=== PATIENT | female | born 1995 | race Caucasian/White ===

== ENCOUNTER 2020-06-28 10:32 | Emergency (ER) | payer OTHER ==
[~2020-06-28] VITALS: Ht 170.2 cm; Wt 58.5 kg
[2020-06-28 11:02] LABS: ABSOLUTE NEUTROPHILS 6.6 thou/uL (1.4-8.2); BASOPHILS 0.7 % (0.0-2.0); EOSINOPHILS 0.8 % (0.0-3.0); HEMATOCRIT 29.9 % (37.0-47.0); HEMOGLOBIN 9.2 gm/dL (12.0-15.0); LYMPHOCYTES 12.2 % (24.0-44.0); MCH 24.8 pg (26.0-34.0); MCHC 30.7 g/dL (28.0-37.0); MCV 80.8 fL (80.0-100.0); MONOCYTES 6.6 % (1.0-8.0); PLATELET COUNT 283 thou/uL (150-400); POLYS 79.7 % (36.0-66.0); RDW 18.4 % (10.5-14.5); WBC 8.3 thou/uL (4.0-11.0)
[2020-06-28 11:18] LABS: ANION GAP 16 mmol/L (7-16); BUN 11 mg/dL (7-18); CALCIUM 9.4 mg/dL (8.5-10.1); CHLORIDE 105 mmol/L (98-107); CO2 17 mmol/L (21-32); CREATININE 0.8 mg/dL (0.6-1.0); GLUCOSE 106 mg/dL (74-106); SODIUM 138 mmol/L (136-145)
[2020-06-28 11:19] LABS: POTASSIUM 2.9 mmol/L (3.5-5.1)
[2020-06-28 11:29] LABS: ALBUMIN 4.2 g/dL (3.4-5.0); SGOT 15 U/L (15-37); SGPT 13 U/L (14-59); TOTAL BILIRUBIN 1.2 mg/dL (0.2-1.0); TROPONIN-I <0.06 ng/mL (<0.06)
[2020-06-28] MEDS ORDERED: PREDNISONE 20 M20 MG PO (12:43)
[2020-06-28] MEDS ORDERED: POTASSIUM20 PO (12:43)
[2020-06-28] MEDS ORDERED: PROAIR HFA8.5 GM INH (12:43)
[2020-06-28 13:10] VITALS: BP 119/72
[2020-06-28 13:57] LABS: ANISOCYTOSIS 1+; PLATELET ESTIMATE NORMAL
--- NOTE | 2020-06-28 14:22 | EKG ---
[place] [address] [facility] [place] [address] ELECTROCARDIOGRAM REPORT Name: ELEANOR MIGUEL Room #: DEP CATE Simmons#: [id number] Admission: 06/28/20 Attend Phys: Discharge: 06/28/20 Date of : [birth year] Report #: [id number] [facility] ED Test Date: 2020-06-28 Test Time: 11:46:03 Pat Name: ELEANOR MIGUEL Department: Room: Gender: F Showroom Sales Assistant: : 1995 Requested By: Rex Mae Order Number: [id number] MD: Brian Moeller Measurements Intervals [place] Rate: 114 P: 63 NM: 140 QRS: 61 QRSD: 77 T: 35 QT: 317 QTc: 437 Interpretive Statements Sinus tachycardia Baseline wander in lead(s) II No previous ECG available for comparison Electronically Signed On 06-28-2020 14:22:39 TREATMENT TECHNICIAN by Brian Moeller [email or web address] <ELECTRONICALLY SIGNED> By: Brian Moeller MD, [facility] 06/28/20 1422 1146 1146 Brian Moeller MD, FACC /EPI
== END 2020-06-28 13:10 | disposition home or self-care (01) ==
LOC: ER 10:32
PROVIDERS: Emergency Medicine
DX: J45.909 Unspecified asthma, uncomplicated (principal); E87.6 Hypokalemia; R53.83 Other fatigue; Z20.828 Contact with and (suspected) exposure to other viral communicable diseases

== ENCOUNTER 2020-07-03 11:02 | Emergency (ER) | payer OTHER ==
[~2020-07-03 11:02] MED LIST: POTASSIUM20 PO; PREDNISONE 20 M20 MG PO; PROAIR HFA8.5 GM INH
== END 2020-07-03 11:11 | disposition left against medical advice (07) ==
LOC: ER 11:02
DX: J02.9 Acute pharyngitis, unspecified (principal); Z53.21 Procedure and treatment not carried out due to patient leaving prior to being seen by health care provider

== ENCOUNTER 2020-07-25 14:28 | Emergency (ER) | payer OTHER ==
[~2020-07-25] VITALS: Ht 170.2 cm; Wt 57.1 kg
[2020-07-25] MEDS ORDERED: AMOXICILLIN500 M1 PO (15:39)
[2020-07-25 16:15] VITALS: BP 132/74
== END 2020-07-25 17:44 | disposition home or self-care (01) ==
LOC: ER 14:28
DX: K08.89 Other specified disorders of teeth and supporting structures (principal); R22.0 Localized swelling, mass and lump, head; Z91.040 Latex allergy status; Z79.899 Other long term (current) drug therapy

== ENCOUNTER 2021-04-24 13:07 | Emergency (ER) | payer OTHER ==
[~2021-04-24 13:07] MED LIST changes: +AMOXICILLIN500 M1 PO
[2021-04-24 13:11] VITALS: BP 107/76
== END 2021-04-24 13:57 | disposition home or self-care (01) ==
LOC: ER 13:07
PROVIDERS: Nurse Practitioner
DX: J02.9 Acute pharyngitis, unspecified (principal); Z20.822 Contact with and (suspected) exposure to COVID-19; J45.909 Unspecified asthma, uncomplicated; Z79.51 Long term (current) use of inhaled steroids; Z79.899 Other long term (current) drug therapy; Z91.040 Latex allergy status

== ENCOUNTER 2021-04-25 15:21 | Emergency (ER) | payer OTHER ==
[~2021-04-25] VITALS: Ht 170.2 cm; Wt 56.2 kg
[2021-04-25 16:12] LABS: HEMOGLOBIN 9.5 gm/dL (12.0-15.0); MCH 25.7 pg (26.0-34.0); MCHC 30.6 g/dL (28.0-37.0); MCV 83.8 fL (80.0-100.0); PLATELET COUNT 343 thou/uL (150-400); RBC 3.69 mil/uL (4.20-5.00); RDW 17.4 % (10.5-14.5); WBC 2.8 thou/uL (4.0-11.0)
[2021-04-25 16:28] LABS: ANION GAP 10 mmol/L (7-16); BUN 15 mg/dL (7-18); CALCIUM 8.6 mg/dL (8.5-10.1); CHLORIDE 105 mmol/L (98-107); CO2 25 mmol/L (21-32); CREATININE 0.5 mg/dL (0.6-1.0); GLUCOSE 82 mg/dL (74-106); POTASSIUM 3.5 mmol/L (3.5-5.1); SODIUM 140 mmol/L (136-145)
[2021-04-25 16:33] LABS: ALBUMIN 4.1 g/dL (3.4-5.0); SGOT 17 U/L (15-37); SGPT 11 U/L (14-59); TOTAL BILIRUBIN 1.2 mg/dL (0.2-1.0)
[2021-04-25 16:38] LABS: ABSOLUTE NEUTROPHILS 0.7 thou/uL (1.4-8.2); ATYPICAL LYMPHS 5 %
[2021-04-25 18:47] VITALS: BP 122/80
--- NOTE | 2021-04-26 08:29 | EKG ---
[place] [address] [address] [place] [address] ELECTROCARDIOGRAM REPORT Name: ELEANOR MIGUEL Room #: [facility] CATE Simmons#: [id number] Admission: 04/25/21 Attend Phys: Discharge: 04/25/21 Date of : [birth year] Report #: [id number] [facility] ED Test Date: 2021-04-25 Test Time: 15:31:55 Pat Name: ELEANOR MIGUEL Department: Room: Gender: F Workers Compensation Legal Secretary: JAMMIE : 1995 Requested By: Moody Curran Order Number: [id number] MD: Ankush Lopez Measurements Intervals [place] Rate: 62 P: 60 OK: 153 QRS: 48 QRSD: 78 T: 45 QT: 408 QTc: 415 Interpretive Statements Sinus rhythm no significant abnormality Compared to ECG 06/28/2020 11:46:03 Sinus tachycardia no longer present Electronically Signed On 04-26-2021 8:29:44 CDT by Ankush Lopez [email or web address] <ELECTRONICALLY SIGNED> By: Ankush Lopez MD, [facility] 04/26/21 0829 153 1531 Ankush Lopez MD, FACC /EPI
== END 2021-04-25 18:47 | disposition home or self-care (01) ==
LOC: ER 15:21
PROVIDERS: Physician Assistant
DX: D72.819 Decreased white blood cell count, unspecified (principal); R07.89 Other chest pain; J45.909 Unspecified asthma, uncomplicated; Z79.51 Long term (current) use of inhaled steroids; Z91.040 Latex allergy status

== ENCOUNTER 2021-06-08 18:19 | Emergency (ER) | payer OTHER ==
[~2021-06-08] VITALS: Ht 172.7 cm; Wt 55.3 kg
[2021-06-08 18:24] VITALS: BP 126/83
[2021-06-08 18:54] LABS: URINE BILIRUBIN NEGATIVE (Negative); URINE BLOOD TRACE (Negative); URINE CLARITY CLEAR; URINE COLOR YELLOW; URINE GLUCOSE-RANDOM* NEGATIVE (Negative); URINE KETONES NEGATIVE (Negative); URINE LEUKOCYTES-REFLEX NEGATIVE (Negative); URINE NITRITE-REFLEX NEGATIVE (Negative); URINE PROTEIN (DIPSTICK) NEGATIVE (Negative); URINE SPECIFIC GRAVITY <= 1.005 (1.005-1.035)
== END 2021-06-08 19:50 | disposition home or self-care (01) ==
LOC: ER 18:19
PROVIDERS: Physician Assistant
DX: U07.1 COVID-19 (principal); Z91.040 Latex allergy status

== ENCOUNTER 2021-07-02 18:48 | Emergency (ER) | payer OTHER ==
[~2021-07-02] VITALS: Ht 172.7 cm; Wt 55.3 kg
[2021-07-02 18:52] VITALS: BP 106/69
[2021-07-02] MEDS ORDERED: NOHOMEMEDICATIONS (18:58)
== END 2021-07-02 20:18 | disposition left against medical advice (07) ==
LOC: ER 18:48
DX: R11.0 Nausea (principal); Z53.21 Procedure and treatment not carried out due to patient leaving prior to being seen by health care provider